=== PATIENT | male | born 1975 | race Caucasian/White ===

== ENCOUNTER 2017-02-28 16:16 | Emergency (ER) | payer SELFPAY ==
[2017-02-28 16:26] VITALS: RESP 18
[2017-02-28] MEDS ORDERED: DIPH,PERTUS(ACELL)TETVAC-LF 0.5 ML VIAL IM ONE (16:38)
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
[2017-02-28] MEDS ORDERED: HYDROcodone/APAP 5-325MG 1 EACH TAB PO STA (17:13)
--- NOTE | 2017-02-28 17:21 | XR ---
EXAMINATION TYPE: XR hand complete RT DATE OF EXAM: 02/28/2017 COMPARISON: 04/26/2013 HISTORY: Pain TECHNIQUE: 3 views FINDINGS: There is thickening of the proximal fifth metacarpal related to old healed fracture. I see no acute fracture nor dislocation. There is a 1 mm opacity in the soft tissues adjacent to the DIP maximo int of the index finger. The carpal bones are intact. The thumb appears intact. IMPRESSION: Small foreign body adjacent to the DIP joint of the index finger. No acute bony abnormali ty.
--- NOTE | 2017-02-28 17:23 | XR ---
EXAMINATION TYPE: XR mandible complete DATE OF EXAM: 02/28/2017 COMPARISON: NONE HISTORY: Pain TECHNIQUE: 5 views FINDINGS: Mandibular ring is intact. I see no fracture. Temporomandibular joint spaces are normal. IMPRESSION: Negative mandible exam.
[2017-02-28 18:09] VITALS: BP 132/83; PULSE 87; TEMP 97.8
== END 2017-02-28 18:09 | disposition home or self-care (01) ==
LOC: EC 16:16
DX: S01.81XA Laceration without foreign body of other part of head, initial encounter (principal); S60.011A Contusion of right thumb without damage to nail, initial encounter; R68.84 Jaw pain; M79.5 Residual foreign body in soft tissue; R93.7 Abnormal findings on diagnostic imaging of other parts of musculoskeletal system; F17.200 Nicotine dependence, unspecified, uncomplicated; Z23 Encounter for immunization; Y04.0XXA Assault by unarmed brawl or fight, initial encounter; Y93.89 Activity, other specified
CPT/HCPCS: 29125; 70110; 90471; 90715; 99284

== ENCOUNTER 2017-03-22 16:05 | Inpatient (IN) | payer OTHER ==
[2017-03-22] MEDS ORDERED: NALOXONE 0.4 MG/ML 1 ML VIAL IV STA (16:10)
[2017-03-22] MEDS ORDERED: SODIUM CHLORIDE 0.9% 1,000 ML IV STA (16:15)
[2017-03-22 16:32] LABS: Basophils % (A) 0 %; CHCM 33.5; Eosinophils # (A) 0.1 k/uL (0-0.7); Eosinophils % (A) 2 %; HDW 2.97; HGB 15.4 gm/dL (13.0-17.5); Luc # (Auto) 0.05; Luc % (Auto) 1; Lymphocytes # (A) 0.8 k/uL (1.0-4.8); Lymphocytes % (A) 17 %; MCHC 34.4 g/dL (31.0-37.0); MCV 93.1 fL (80.0-100.0); Mean Platelet Volume 6.9; Monocytes # (A) 0.2 k/uL (0-1.0); Monocytes % (A) 4 %; Neutrophils # (A) 3.6 k/uL (1.3-7.7); Neutrophils % (A) 76 %; RBC 4.83 m/uL (4.30-5.90); RDW 14.4 % (11.5-15.5); WBC 4.7 k/uL (3.8-10.6); WBC (Perox) 4.45
--- NOTE | 2017-03-22 16:44 | ED ---
General Adult HPI - General Chief complaint: Overdose Stated complaint: overdose Time Seen by Provider: 03/22/17 16:10 Source: EMS, RN notes reviewed, old records reviewed Mode of arrival: EMS Limitations: altered mental status - History of Present Illness Initial comments: This is a 41-year-old male the ER for evaluation. Patient coming in for suspected overdose. Patient found unresponsive, EMS called by bystander patient was breathing on his own but difficult to arouse. Patient remains in similar condition. Patient is a patient from EMS and patient's chart. Patient has history of drug abuse - Related Data Home Medications Medication Instructions Recorded Confirmed No Known Home Medications [No 03/22/17 03/22/17 Known Home Medications] Allergies Allergy/AdvReac Type Severity Reaction Status Date / Time No Known Allergies Allergy Verified 03/22/17 16:52 Review of Systems ROS Statement: Those systems with pertinent positive or pertinent negative responses have been documented in the HPI. ROS Other: All systems not noted in ROS Statement are negative. Past Medical History Past Medical History: No Reported History History of Any Multi-Drug Resistant Organisms: None Reported Past Surgical History: Appendectomy Past Psychological History: Depression Smoking Status: Current some day smoker Past Alcohol Use History: Occasional Past Drug Use History: Opiates General Exam Limitations: altered mental status General appearance: alert, obtunded, in distress Head exam: Present: atraumatic, normocephalic, normal inspection Eye exam: Present: normal appearance, PERRL, EOMI. Absent: scleral icterus, conjunctival injection, periorbital swelling ENT exam: Present: normal exam, mucous membranes moist Neck exam: Present: normal inspection. Absent: tenderness, meningismus, lymphadenopathy Respiratory exam: Present: normal lung sounds bilaterally. Absent: respiratory distress, wheezes, rales, rhonchi, stridor Cardiovascular Exam: Present: regular rate, normal rhythm, normal heart sounds. Absent: systolic murmur, diastolic murmur, rubs, gallop, clicks GI/Abdominal exam: Present: soft, normal bowel sounds. Absent: distended, tenderness, guarding, rebound, rigid Extremities exam: Present: normal inspection, full ROM, normal capillary refill. Absent: tenderness, pedal edema, joint swelling, calf tenderness Back exam: Present: normal inspection Neurological exam: Present: alert, oriented X3, CN II-XII intact Psychiatric exam: Present: normal affect, normal mood Skin exam: Present: warm, dry, intact, normal color. Absent: rash Course Vital Signs 03/22/17 16:07 Temperature 97.9 F Pulse Rate 118 H Respiratory 16 Rate Blood Pressure 136/90 O2 Sat by Pulse 99 Oximetry - Reevaluation(s) Reevaluation #1: 03/22/17 17:03 Patient does mildly protect airway, he does move with stimulation, maintaining oxygen both with and without supplemental O2 Medical Decision Making - Medical Decision Making Female ER for evaluation of altered mental status, unresponsiveness, benzodiazepine abuse and overdose. Patient will be admitted for continued monitoring of cardiovascular status - Lab Data Result diagrams: 03/22/17 16:15 03/22/17 16:15 Lab Results 03/22/17 03/22/17 03/22/17 Range/Units 16:15 16:15 16:15 WBC 4.7 (3.8-10.6) k/uL RBC 4.83 (4.30-5.90) m/uL Hgb 15.4 (13.0-17.5) gm/dL Hct 45.0 (39.0-53.0) % MCV 93.1 (80.0-100.0) fL MCH 32.0 (25.0-35.0) pg MCHC 34.4 (31.0-37.0) g/dL RDW 14.4 (11.5-15.5) % Plt Count 284 (150-450) k/uL Neutrophils % 76 % Lymphocytes % 17 % Monocytes % 4 % Eosinophils % 2 % Basophils % 0 % Neutrophils # 3.6 (1.3-7.7) k/uL Lymphocytes # 0.8 L (1.0-4.8) k/uL Monocytes # 0.2 (0-1.0) k/uL Eosinophils # 0.1 (0-0.7) k/uL Basophils # 0.0 (0-0.2) k/uL PT 11.6 (9.0-12.0) sec INR 1.2 H (<1.2) Sodium 142 (137-145) mmol/L Potassium 3.9 (3.5-5.1) mmol/L Chloride 105 (98-107) mmol/L Carbon Dioxide 22 (22-30) mmol/L Anion Gap 15 mmol/L BUN 9 (9-20) mg/dL Creatinine 1.20 (0.66-1.25) mg/dL Est GFR (MDRD) Af Amer >60 (>60 ml/min/1.73 sqM) Est GFR (MDRD) Non-Af >60 (>60 ml/min/1.73 sqM) Glucose 304 H (74-99) mg/dL Calcium 8.5 (8.4-10.2) mg/dL Total Bilirubin 0.8 (0.2-1.3) mg/dL AST 100 H (17-59) U/L ALT 53 (21-72) U/L Alkaline Phosphatase 86 (38-126) U/L Total Protein 6.4 (6.3-8.2) g/dL Albumin 3.9 (3.5-5.0) g/dL Lipase 188 (23-300) U/L Salicylates <1.0 mg/dL Urine Opiates Screen (NotDetected) Ur Oxycodone Screen (NotDetected) Urine Methadone Screen (NotDetected) Ur Propoxyphene Screen (NotDetected) Acetaminophen <10.0 ug/mL Ur Barbiturates Screen (NotDetected) U Tricyclic Antidepress (NotDetected) Ur Phencyclidine Scrn (NotDetected) Ur Amphetamines Screen (NotDetected) U Methamphetamines Scrn (NotDetected) U Benzodiazepines Scrn (NotDetected) Urine Cocaine Screen (NotDetected) U Marijuana (THC) Screen (NotDetected) Serum Alcohol <10 mg/dL 03/22/17 Range/Units 16:24 WBC (3.8-10.6) k/uL RBC (4.30-5.90) m/uL Hgb (13.0-17.5) gm/dL Hct (39.0-53.0) % MCV (80.0-100.0) fL MCH (25.0-35.0) pg MCHC (31.0-37.0) g/dL RDW (11.5-15.5) % Plt Count (150-450) k/uL Neutrophils % % Lymphocytes % % Monocytes % % Eosinophils % % Basophils % % Neutrophils # (1.3-7.7) k/uL Lymphocytes # (1.0-4.8) k/uL Monocytes # (0-1.0) k/uL Eosinophils # (0-0.7) k/uL Basophils # (0-0.2) k/uL PT (9.0-12.0) sec INR (<1.2) Sodium (137-145) mmol/L Potassium (3.5-5.1) mmol/L Chloride (98-107) mmol/L Carbon Dioxide (22-30) mmol/L Anion Gap mmol/L BUN (9-20) mg/dL Creatinine (0.66-1.25) mg/dL Est GFR (MDRD) Af Amer (>60 ml/min/1.73 sqM) Est GFR (MDRD) Non-Af (>60 ml/min/1.73 sqM) Glucose (74-99) mg/dL Calcium (8.4-10.2) mg/dL Total Bilirubin (0.2-1.3) mg/dL AST (17-59) U/L ALT (21-72) U/L Alkaline Phosphatase (38-126) U/L Total Protein (6.3-8.2) g/dL Albumin (3.5-5.0) g/dL Lipase (23-300) U/L Salicylates mg/dL Urine Opiates Screen Not Detected (NotDetected) Ur Oxycodone Screen Not Detected (NotDetected) Urine Methadone Screen Not Detected (NotDetected) Ur Propoxyphene Screen Not Detected (NotDetected) Acetaminophen ug/mL Ur Barbiturates Screen Not Detected (NotDetected) U Tricyclic Antidepress Not Detected (NotDetected) Ur Phencyclidine Scrn Not Detected (NotDetected) Ur Amphetamines Screen Detected H (NotDetected) U Methamphetamines Scrn Not Detected (NotDetected) U Benzodiazepines Scrn Detected H (NotDetected) Urine Cocaine Screen Not Detected (NotDetected) U Marijuana (THC) Screen Not Detected (NotDetected) Serum Alcohol mg/dL Critical Care Time Critical Care Time: Yes Total Critical Care Time: 31 Disposition Clinical Impression: Drug overdose, Benzodiazepine overdose Disposition: ADMITTED IP TO THIS [facility] Condition: Serious Referrals: None,Stated [Primary Care Provider] - 1-2 days
[2017-03-22 16:45] LABS: INR 1.2 (<1.2); Prothrombin Time 11.6 sec (9.0-12.0)
[2017-03-22 16:47] LABS: ALT 53 U/L (21-72); AST 100 U/L (17-59); Acetaminophen <10.0 ug/mL; Alcohol <10 mg/dL; Alkaline Phosphatase 86 U/L (38-126); Anion Gap 15 mmol/L; Blood Urea Nitrogen 9 mg/dL (9-20); Calcium 8.5 mg/dL (8.4-10.2); Carbon Dioxide 22 mmol/L (22-30); Chloride 105 mmol/L (98-107); Glucose 304 mg/dL (74-99); Non-African American GFR(MDRD) >60 (>60 ml/min/1.73 sqM); Potassium 3.9 mmol/L (3.5-5.1); Salicylate <1.0 mg/dL; Sodium 142 mmol/L (137-145); Total Bilirubin 0.8 mg/dL (0.2-1.3); Total Protein 6.4 g/dL (6.3-8.2)
[2017-03-22] MEDS ORDERED: SODIUM CHLORIDE 0.9% 1,000 ML IV ONE (17:05)
[2017-03-22 17:08] LABS: Creatine Kinase MB 1.1 ng/mL (0.0-2.4)
[2017-03-22 17:53] LABS: Glucose,Whole Blood 188 mg/dL (75-99)
[2017-03-22 19:20] LABS: Glucose,Whole Blood 115 mg/dL (75-99)
[2017-03-22] MEDS: PANTOPRAZOLE 40 MG/10 ML VIAL IVP SCH (19:21)
[2017-03-22] MEDS: HEPARIN SODIUM,PORCINE 5,000 UNIT/ML 1 ML VIAL SQ SCH (20:43)
[2017-03-22] MEDS: INSULIN LISPRO (humaLOG) 300 UNIT/3 ML VIAL SQ SCH (20:43)
[2017-03-22 20:45] LABS: Glucose,Whole Blood 106 mg/dL (75-99)
[2017-03-22 21:34] LABS: ALT 53 U/L (21-72); AST 55 U/L (17-59); Alkaline Phosphatase 91 U/L (38-126); Anion Gap 11 mmol/L; Blood Urea Nitrogen 8 mg/dL (9-20); Calcium 8.4 mg/dL (8.4-10.2); Carbon Dioxide 25 mmol/L (22-30); Chloride 108 mmol/L (98-107); Glucose 86 mg/dL (74-99); Non-African American GFR(MDRD) >60 (>60 ml/min/1.73 sqM); Potassium 3.8 mmol/L (3.5-5.1); Sodium 144 mmol/L (137-145); Total Bilirubin 0.8 mg/dL (0.2-1.3); Total Protein 6.1 g/dL (6.3-8.2)
[2017-03-23 04:51] LABS: Basophils % (A) 0 %; CH 32.3; CHCM 34.2; Eosinophils % (A) 0 %; HCT 40.4 % (39.0-53.0); HGB 13.2 gm/dL (13.0-17.5); Luc # (Auto) 0.07; Luc % (Auto) 1; Lymphocytes % (A) 12 %; MCH 31.1 pg (25.0-35.0); MCHC 32.7 g/dL (31.0-37.0); MCV 95.2 fL (80.0-100.0); Mean Platelet Volume 7.1; Monocytes # (A) 0.3 k/uL (0-1.0); Monocytes % (A) 4 %; Neutrophils # (A) 6.5 k/uL (1.3-7.7); Neutrophils % (A) 82 %; RBC 4.25 m/uL (4.30-5.90); RDW 15.2 % (11.5-15.5); WBC 7.9 k/uL (3.8-10.6); WBC (Perox) 8.46
[2017-03-23 05:25] LABS: ALT 40 U/L (21-72); AST 34 U/L (17-59); Alkaline Phosphatase 74 U/L (38-126); Anion Gap 7 mmol/L; Blood Urea Nitrogen 8 mg/dL (9-20); Calcium 8.2 mg/dL (8.4-10.2); Carbon Dioxide 25 mmol/L (22-30); Chloride 106 mmol/L (98-107); Glucose 75 mg/dL (74-99); Magnesium 1.5 mg/dL (1.6-2.3); Non-African American GFR(MDRD) >60 (>60 ml/min/1.73 sqM); Phosphorous 2.7 mg/dL (2.5-4.5); Potassium 3.7 mmol/L (3.5-5.1); Sodium 138 mmol/L (137-145); Total Protein 5.2 g/dL (6.3-8.2)
[2017-03-23] MEDS ORDERED: Magnesium Replacement Protocol 1 EACH MISC MISCELLANE PRN (05:30)
[2017-03-23] MEDS ORDERED: Potassium Replacement Protocol 1 EACH MISC MISCELLANE PRN (05:30)
[2017-03-23] MEDS: MAGNESIUM SULFATE-D5W PMX 1 GM in DEXTROSE/WATER 1 100ML.BAG IVPB SCH ×2 (06:48→10:13)
[2017-03-23 07:37] LABS: Glucose,Whole Blood 125 mg/dL (75-99)
[2017-03-23] MEDS ORDERED: ENOXAPARIN 40 MG/0.4 ML SYRINGE SQ SCH (09:00)
--- NOTE | 2017-03-23 10:01 | XR ---
EXAMINATION TYPE: XR chest 1V portable DATE OF EXAM: 03/23/2017 COMPARISON: NONE HISTORY: Possible aspiration pneumonia. Cough. TECHNIQUE: Single frontal view of the chest is obtained. FINDINGS: New focal consolidations are seen within the left midlung and right infrahilar region. Rem ainder the lungs are clear. No pneumothorax or pleural effusion. Osseous structures appear intact. IMPRESSION: Left midlung and right infrahilar airspace disease, new from the prior, suspicious for m ultifocal pneumonia which may be on the basis of aspiration as clinically suspected.
[2017-03-23] MEDS: PANTOPRAZOLE 40 MG/10 ML VIAL IVP SCH (10:13)
[2017-03-23] MEDS: HEPARIN SODIUM,PORCINE 5,000 UNIT/ML 1 ML VIAL SQ SCH ×2 (10:14→22:50)
[2017-03-23] MEDS: POTASSIUM CHLORIDE ER 20 MEQ TAB.ER PO SCH ×2 (10:14→11:43)
[2017-03-23] MEDS: INSULIN LISPRO (humaLOG) 300 UNIT/3 ML VIAL SQ SCH ×4 (10:15→22:50)
[2017-03-23] MEDS: AMOXIC-POT CLAV 875-125MG 1 EACH TAB PO SCH ×2 (11:44→22:50)
[2017-03-23 11:57] LABS: Hemoglobin A1C 5.2 % (4.2-6.1)
[2017-03-23 12:16] LABS: Glucose,Whole Blood 101 mg/dL (75-99)
--- NOTE | 2017-03-23 12:23 | P.CNPUL ---
History of Present Illness Consult date: 03/23/17 Requesting physician: Peewee Thurston Reason for consult: other (Suspected drug overdose) Chief complaint: Altered mental status History of present illness: This is a 41-year-old white male with history of substance abuse, brought into the ER unresponsive, patient was found by a bystander confused, unable to arouse , and was found to be breathing on his own. Upon arrival to the ER, patient remained in a relatively similar condition, a drug screen in the ER came back positive for amphetamines and benzodiazepines. Patient was admitted to the ICU last night at 6 PM, however during my evaluation the patient was noted to be relatively unremarkable, alert, oriented, and in no form of respiratory distress. Chest x-ray questioned infiltrates in the bases especially in the left lower lobe, hence I recommended adding Augmentin for presumptive aspiration pneumonia. Patient is complaining of a productive cough with yellow phlegm, no fever, no chills, no hemoptysis, no chest pain. No nausea no vomiting no abdominal pain no melena no hematemesis or dysuria frequency or urgency. Review of Systems 14 point review of systems were obtained, please refer to pertinent positives and negatives as per HPI. Past Medical History Past Medical History: No Reported History History of Any Multi-Drug Resistant Organisms: None Reported Past Surgical History: Appendectomy Past Psychological History: Depression Smoking Status: Current some day smoker Past Alcohol Use History: Occasional Past Drug Use History: Opiates Medications and Allergies Home Medications Medication Instructions Recorded Confirmed Type No Known Home Medications [No 03/22/17 03/22/17 History Known Home Medications] Allergies Allergy/AdvReac Type Severity Reaction Status Date / Time No Known Allergies Allergy Verified 03/22/17 16:52 Physical Exam Vitals: Vital Signs Temp Pulse Pulse Resp BP Pulse Ox 03/23/17 10:00 95 15 103/53 96 03/23/17 09:00 91 15 108/62 96 03/23/17 08:00 98.1 F 93 102 H 14 103/63 97 03/23/17 07:00 90 12 102/60 97 03/23/17 06:30 90 12 102/60 97 03/23/17 06:00 89 16 96/54 96 03/23/17 05:30 95 16 96/54 98 03/23/17 05:00 89 20 101/61 95 03/23/17 04:30 87 15 101/61 96 03/23/17 04:00 98.2 F 84 102 H 16 102/59 96 03/23/17 03:30 90 14 102/59 95 03/23/17 03:00 92 19 99/58 95 03/23/17 02:30 94 16 85/56 94 L 03/23/17 02:00 93 16 92/55 95 03/23/17 01:30 96 15 87/56 95 03/23/17 01:00 94 18 92/51 96 03/23/17 00:30 89 15 84/52 96 03/23/17 00:00 97.8 F 91 102 H 16 104/75 96 03/22/17 23:34 85 15 104/75 92 L 03/22/17 23:30 98.2 F 94 18 104/75 92 L 03/22/17 23:00 84 18 100 03/22/17 22:30 89 14 111/75 100 03/22/17 22:00 88 15 111/75 100 03/22/17 21:30 92 18 111/75 99 03/22/17 21:00 101 H 24 111/75 98 03/22/17 20:30 91 13 86/65 100 03/22/17 20:00 98.7 F 88 102 H 13 107/62 100 03/22/17 19:30 90 13 108/65 100 03/22/17 19:00 90 11 L 108/66 100 03/22/17 18:30 95 13 98/71 100 03/22/17 18:15 96 13 105/73 97 03/22/17 18:00 97 14 107/74 99 03/22/17 17:45 97.9 F 102 H 102 H 13 111/70 100 03/22/17 17:15 97.9 F 108 H 20 115/61 98 03/22/17 17:00 114 H 19 128/61 94 L 03/22/17 16:30 114 H 20 134/66 99 03/22/17 16:07 97.9 F 118 H 16 136/90 99 Intake and Output 03/22/17 03/23/17 03/23/17 22:59 06:59 14:59 Intake Total 1400 800 400 Output Total 1050 660 460 Balance 350 140 -60 Intake: IV 1400 800 400 Sodium Chloride 0.9% 1, 400 800 400 000 ml @ 100 mls/hr IV . Q10H ONE Rx#:[id number] Sodium Chloride 0.9% 1, 1000 000 ml @ 999 mls/hr IV . Q1H1M STA Rx#:[id number] Output: Urine 1050 660 460 Other: Voiding Method Indwelling Catheter Indwelling Catheter Indwelling Catheter Weight 66.4 kg 62.9 kg Physical Exam: Revealed a 41-year-old white male in no distress. HEENT:[Neck is supple.] [No neck masses.] [No thyromegaly.] [No JVD.] Chest: [Clear throughout, normal fine crackles at the bases, no rhonchi, no wheezes..] Cardiac Exam: [Normal S1 and S2, no S3 gallop, no murmur.] Abdomen: [Soft, nontender, no megaly, no rebound, no guarding, normal bowel sounds.] Extremities: [No clubbing, no edema, no cyanosis.] Neurological Exam: [No focal neurologic deficit.] Results - Laboratory Findings CBC and BMP: 03/23/17 04:01 03/23/17 04:25 PT/INR, D-dimer PT 11.6 sec (9.0-12.0) 03/22/17 16:15 INR 1.2 (<1.2) H 03/22/17 16:15 Abnormal lab findings: Abnormal Labs 03/22/17 03/22/17 03/22/17 16:15 16:15 16:15 RBC Lymphocytes # 0.8 L INR 1.2 H Chloride BUN Glucose 304 H POC Glucose (mg/dL) Calcium Magnesium AST 100 H Total Protein Albumin Ur Amphetamines Screen U Benzodiazepines Scrn 03/22/17 03/22/17 03/22/17 16:24 17:41 19:18 RBC Lymphocytes # INR Chloride BUN Glucose POC Glucose (mg/dL) 188 H 115 H Calcium Magnesium AST Total Protein Albumin Ur Amphetamines Screen Detected H U Benzodiazepines Scrn Detected H 03/22/17 03/22/17 03/23/17 20:42 21:01 04:01 RBC 4.25 L Lymphocytes # INR Chloride 108 H BUN 8 L Glucose POC Glucose (mg/dL) 106 H Calcium Magnesium AST Total Protein 6.1 L Albumin Ur Amphetamines Screen U Benzodiazepines Scrn 03/23/17 03/23/17 03/23/17 04:25 07:32 12:15 RBC Lymphocytes # INR Chloride BUN 8 L Glucose POC Glucose (mg/dL) 125 H 101 H Calcium 8.2 L Magnesium 1.5 L AST Total Protein 5.2 L Albumin 2.9 L Ur Amphetamines Screen U Benzodiazepines Scrn - Diagnostic Findings Chest x-ray: image reviewed (Suspicious for aspiration pneumonia) Assessment and Plan Plan: Impression: 1 acute mental status change most likely secondary to multi-substance abuse/ amphetamines and benzodiazepines. 2 strongly suspect aspiration pneumonia. Recommendation: Patient will be placed on Augmentin empirically, all his labs were reviewed, we'll recommend DuoNeb elmerradewayne 4 times a day and when necessary , with transfer the patient with a bedside sitter to be available at bedside and will follow on when necessary basis. Time with Patient: Greater than 30
[2017-03-23] MEDS ORDERED: IPRATROPIUM-ALBUTEROL 3 ML NEB INHALATION PRN (12:24)
--- NOTE | 2017-03-23 13:27 | HP ---
DATE OF SERVICE: 03/22/2017 CHIEF COMPLAINTS: Overdose. HISTORY OF PRESENT ILLNESS: This 41-year-old gentleman with past medical history of multiple medical problems including appendectomy, otherwise no other major issues, with history of depression being followed by no primary physician in the outpatient setting apparently had been admitted to [facility] with complaints of overdose. The patient overdosed on benzodiazepines and methamphetamines. The drug screen is positive methamphetamines and benzodiazepines. The patient is admitted for further evaluation and treatments. Sugars were increased initially. Currently patient is drowsy and unable to give coherent history. Most of history is taken from my discussion with ER physician , review of the chart as well as staff also. PAST MEDICAL HISTORY: History of appendectomy, history of depression. Medications prior to admission: None. ALLERGIES: None. FAMILY HISTORY: No history of heart disease or strokes in the family. SOCIAL HISTORY: History of smoking, otherwise per chart. Review of systems could not be taken at length because of patients change in mental status. PHYSICAL EXAMINATION: The patient is stuporous. Pulse 95, blood pressure 98/71, respirations 13, temperature normal, pulse ox 100% on 2-L. HEENT: Conjunctivae normal. Oral mucosa moist. NECK: No jugular venous distention. No carotid bruit. No lymph node enlargement. CARDIOVASCULAR: S1, S2. No S3 or S4. RESPIRATORY: Breath sounds diminished at the bases. A few rhonchi, no crackles. ABDOMEN: Soft, nontender. No mass palpable. LEGS: No edema, no swelling. NERVOUS SYSTEM: Higher function as mentioned. Moves all four limbs. No focal motor sensory deficits. LYMPHATICS: No lymphadenopathy in the neck, axillae or groin. SKIN: No rash, ulcer or bleeding. LABS: CBC within normal limits. INR is 1.2. Glucose 304 and 188. ASSESSMENT: 1. Status post overdose. 2. Change in mental status, metabolic encephalopathy secondary to overdose. 3. Increased random blood sugar, rule out diabetes mellitus type 2. 4. History of appendectomy. 5. History of depression. 6. History of nicotine dependence. RECOMMENDATIONS AND DISCUSSION: In this 41-year-old gentleman who presented with multiple complex medical issues, we well monitor the patient closely. Continue the current medications. Continue symptomatic treatment. Otherwise at this time I would recommend Psychiatry and Social Work evaluations also. DVT prophylaxis. GI prophylaxis. Repeat the labs tomorrow. Prognosis guarded. Further recommendations to follow. MTDD
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
[2017-03-23 17:26] LABS: Glucose,Whole Blood 117 mg/dL (75-99)
[2017-03-23 20:53] LABS: Glucose,Whole Blood 116 mg/dL (75-99)
[2017-03-24 07:15] LABS: Glucose,Whole Blood 99 mg/dL (75-99)
[2017-03-24] MEDS ORDERED: PANTOPRAZOLE 40 MG TABLET PO SCH (07:30)
--- NOTE | 2017-03-24 07:35 | PN ---
DATE OF SERVICE: 03/23/2017 This 41-year-old gentleman who was admitted with benzodiazepine and methamphetamine overdose is being closely monitored. No chest pain, no palpitation, no fever. The patient is much more alert today. Pulmonary is following the patient closely. Chest x-ray showed possibly a left lobe pneumonia, possibly aspiration in nature. Augmentin has been recommended by Dr. Toro. Psychiatry is seeing the patient also and recommended close follow up. PAST MEDICAL HISTORY: Reviewed. REVIEW OF SYSTEMS: CARDIOVASCULAR: No angina. RESPIRATORY: As mentioned earlier. GI: As mentioned earlier. : No dysuria. NERVOUS SYSTEM: As mentioned earlier. CURRENT MEDICATIONS: Reviewed and include: 1. DuoNeb q.i.d. and p.r.n. 2. Augmentin. 3. Heparin. 4. KCL, 5. Protonix. PHYSICAL EXAMINATION: The patient is alert and oriented x3. Pulse is 80, blood pressure 118/70, respirations 18, temperature 98.4, pulse ox 92% on room air. HEENT: Conjunctivae normal. NECK: No JVD. CARDIOVASCULAR: S1/S2. RESPIRATORY: Diminished breath sounds, especially at the bases. A few scattered rhonchi, no crackles. ABDOMEN: Soft, nontender. LEGS: No edema. NERVOUS SYSTEM: Diffusely weak. LAB INVESTIGATIONS: CBC within normal. Accu-Cheks are noted. Albumin is 2.9 ASSESSMENT: 1. Status post overdose. 2. Change in mental status, metabolic encephalopathy secondary to overdose. 3. Right lower lobe pneumonia, possibly aspiration pneumonia. 4. Increased random blood sugar. 5. History of appendectomy. 6. History of depression. 7. History of nicotine dependence. RECOMMENDATIONS AND DISCUSSION: Recommend to continue current medication, continue to monitor, continue symptomatic treatment. Continue with IV antibiotics. Otherwise, hemoglobin A1c is only 5.2, will continue to monitor. Prognosis is guarded because of multiple complex medical issues. Further recommendations to follow. See orders for details. Psychiatric consultation and rn social work, counseling follow in the outpatient setting. MTDD
[2017-03-24 07:37] VITALS: BP 125/74; RESP 16; TEMP 99.2
[2017-03-24] MEDS: INSULIN LISPRO (humaLOG) 300 UNIT/3 ML VIAL SQ SCH (08:37)
[2017-03-24] MEDS: HEPARIN SODIUM,PORCINE 5,000 UNIT/ML 1 ML VIAL SQ SCH (09:14)
[2017-03-24] MEDS: AMOXIC-POT CLAV 875-125MG 1 EACH TAB PO SCH (09:14)
[2017-03-24 09:43] LABS: CH 32.1; CHCM 34.4; HCT 41.5 % (39.0-53.0); HDW 2.82; HGB 13.7 gm/dL (13.0-17.5); MCH 30.9 pg (25.0-35.0); MCV 93.8 fL (80.0-100.0); Mean Platelet Volume 7.1; RBC 4.42 m/uL (4.30-5.90); RDW 14.6 % (11.5-15.5)
[2017-03-24 09:46] LABS: Anion Gap 7 mmol/L; Blood Urea Nitrogen 4 mg/dL (9-20); Calcium 8.1 mg/dL (8.4-10.2); Carbon Dioxide 22 mmol/L (22-30); Chloride 110 mmol/L (98-107); Glucose 104 mg/dL (74-99); Magnesium 1.8 mg/dL (1.6-2.3); Non-African American GFR(MDRD) >60 (>60 ml/min/1.73 sqM); Potassium 3.8 mmol/L (3.5-5.1); Sodium 139 mmol/L (137-145)
[2017-03-24 10:01] VITALS: PULSE 97
== END 2017-03-24 12:52 | disposition left against medical advice (07) | DRG 917 ==
LOC: EC 16:05 → 6ICU 17:05 → 4MS4W 03-23 12:23
PROVIDERS: ADMIT Hospitalist; ATTEND Hospitalist
DX: T42.4X1A Poisoning by benzodiazepines, accidental (unintentional), initial encounter (principal); G93.41 Metabolic encephalopathy; J69.0 Pneumonitis due to inhalation of food and vomit; T43.621A Poisoning by amphetamines, accidental (unintentional), initial encounter; F17.200 Nicotine dependence, unspecified, uncomplicated
CPT/HCPCS: 36415; 71010; 80048; 80053; 80306; 80320; 82550; 82553; 83036; 83520; 83690; 83735; 84100; 85025; 85027; 85610; 93005; 96361; 96374; 99291

== ENCOUNTER 2021-11-07 09:17 | Emergency (ER) | payer OTHER ==
[2021-11-07 09:21] VITALS: RESP 18; TEMP 97
[2021-11-07] MEDS ORDERED: HYDROmorphone 0.5 MG/0.5 ML SYRINGE IVP STA (09:29)
[2021-11-07] MEDS ORDERED: ONDANSETRON 4 MG/2 ML VIAL IVP STA (09:29)
--- NOTE | 2021-11-07 10:24 | XR ---
EXAMINATION TYPE: XR ankle complete bilateral DATE OF EXAM: 11/07/2021 COMPARISON: None available INDICATION: Pain after fall TECHNIQUE: Standard 3 views of each ankle. FINDINGS: Right ankle: Soft tissue swelling inferior to the right medial malleolus. Few bone fragments are seen at that loca tion, well-corticated and probably related to sequela of previous trauma. No definite acute fracture line identified otherwise. Preserved ankle mortise with a smooth talar dome. No sizable ankle joint e ffusion. Left ankle: Commuted fracture involving the left calcaneus most evident at its mid and posterior aspects. No othe r definite fracture line identified. Preserved ankle mortise with a smooth talar dome. No sizable ank le joint effusion. IMPRESSION: Left calcaneus fracture as described above.
[2021-11-07] MEDS ORDERED: KETOROLAC 15 MG/ML 1 ML VIAL IVP STA (10:27)
[2021-11-07] MEDS ORDERED: HYDROmorphone 1 MG/ML 1 ML SYRINGE IVP STA (10:27)
--- NOTE | 2021-11-07 10:29 | XR ---
EXAMINATION TYPE: XR lumbar spine 2 or 3V DATE OF EXAM: 11/07/2021 COMPARISON: X-ray dated 03/10/2014 INDICATION: Pain after fall TECHNIQUE: Standard 3 views of the lumbar spine. FINDINGS: Minimal retrolisthesis of L5 over S1 and L3 over L4, appreciated previously. No definite vertebral tricia dy collapse or acute displaced fracture. No significant bony degenerative changes of the lumbar spine. Questionable osteopenia. Grossly unrema rkable sacroiliac joints. Fecal loading of the colon. IMPRESSION: No definite lumbar vertebral fracture identified.
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
--- NOTE | 2021-11-07 10:56 | CT ---
EXAMINATION TYPE: CT ankle LT wo con DATE OF EXAM: 11/07/2021 INDICATION: Fall off ladder, 12 ft. Pain, Calcaneus fracture CT DLP: 72.2 mGy.cm Automated Exposure Control for Dose Reduction was Utilized. TECHNIQUE AND CONTRAST: CT scan of the left ankle without IV contrast administration. 3-D reconstruction images were generate d on an independent workstation and reviewed. COMPARISON: X-ray performed earlier same day FINDINGS: Comminuted extensive mildly displaced fracture of the calcaneus extending from its anterior to its po sterior margin of the multiple variable size bone fragments and a gap up to 8 mm at the fra cture site. The fracture line is seen extending anteriorly to the calcaneocuboid articulation as well as the anterior and posterior subtalar joints. No other definite tarsal bone fracture identified. Apparent mild anterior subluxation of the talus in relation to the tibia without definite fracture. No sizable ankle joint effusion. Preserved ankle mo rtise with a smooth talar dome. IMPRESSION: Comminuted calcaneal fracture as described above, for orthopedic consultation.
[2021-11-07 11:36] VITALS: BP 140/86; PULSE 94
== END 2021-11-07 13:15 | disposition home or self-care (01) ==
LOC: EC 09:17
DX: S92.002A Unspecified fracture of left calcaneus, initial encounter for closed fracture (principal); F32.A Depression, unspecified; Z90.49 Acquired absence of other specified parts of digestive tract; W11.XXXA Fall on and from ladder, initial encounter
CPT/HCPCS: 99284; 96374; 96375 ×2; 96376; 29515; 73610; 72100; 73700; J2405; J1170 ×2; J1885

== ENCOUNTER 2022-01-17 10:39 | Emergency (ER) | payer OTHER ==
[2022-01-17 10:50] VITALS: PULSE 115; RESP 18; TEMP 97
--- NOTE | 2022-01-17 10:57 | ED ---
Overdose HPI - General Chief Complaint: Overdose Stated Complaint: Overdose Time Seen by Provider: 01/17/22 10:45 Source: patient, EMS, RN notes reviewed, old records reviewed Mode of arrival: EMS Limitations: no limitations - History of Present Illness Initial Comments: 46-year-old male, alert and oriented presents to the emergency room via EMS after being found unresponsive. Patient states he walked out to his truck to get a bottle for his granddaughter and passed out. His daughter called 911. EMS gave him Narcan and he awoke. Patient states that he only took 6 Xanax 2 mg tablets to help him sleep about an hour ago as he hasn't been sleeping well. He denies any narcotic use at all. He denies alcohol use today. He denies any pain at this time. No chest pain or difficulty breathing. No nausea, vomiting, diarrhea or fevers. He denies any suicidal or homicidal ideations. MD Complaint: accidental overdose Intent: want to go to sleep How Overdose Was Discovered: called family/friend Context: Accidental Overdose: other (trying to get some sleep) Treatments Prior to Arrival: narcan - Related Data Home Medications Medication Instructions Recorded Confirmed No Known Home Medications 01/17/22 01/17/22 Allergies Allergy/AdvReac Type Severity Reaction Status Date / Time No Known Allergies Allergy Verified 01/17/22 12:02 Review of Systems ROS Statement: Those systems with pertinent positive or pertinent negative responses have been documented in the HPI. ROS Other: All systems not noted in ROS Statement are negative. Past Medical History Past Medical History: No Reported History History of Any Multi-Drug Resistant Organisms: None Reported Past Surgical History: Appendectomy Past Psychological History: No Psychological Hx Reported Smoking Status: Current every day smoker, Vaper Past Alcohol Use History: Occasional Past Drug Use History: Opiates General Exam Limitations: no limitations General appearance: alert, in no apparent distress Head exam: Present: atraumatic, normocephalic, normal inspection Eye exam: Present: normal appearance, EOMI. Absent: scleral icterus, conjunctival injection, nystagmus, periorbital swelling, periorbital tenderness Pupils: Present: miosis ENT exam: Present: normal exam, normal oropharynx, mucous membranes moist Neck exam: Present: normal inspection, full ROM. Absent: tenderness, meningismus Respiratory exam: Present: normal lung sounds bilaterally. Absent: respiratory distress, accessory muscle use Cardiovascular Exam: Present: tachycardia GI/Abdominal exam: Present: soft. Absent: distended, tenderness, rigid Back exam: Present: full ROM, other (Abrasion noted to the mid thoracic spine). Absent: tenderness, CVA tenderness (R), CVA tenderness (L) Neurological exam: Present: alert, oriented X3, CN II-XII intact Psychiatric exam: Present: normal affect, normal mood Skin exam: Present: warm, dry, normal color. Absent: cyanosis, diaphoretic, petechiae, pallor Course Vital Signs 01/17/22 01/17/22 10:44 12:37 Temperature 97.0 F L Pulse Rate 115 H Respiratory 18 18 Rate Blood Pressure 144/101 152/99 O2 Sat by Pulse 94 L 98 Oximetry Medical Decision Making - Medical Decision Making Patient was observed in the emergency room for 2 hours with no complaints, no vomiting, no complaints of chest pain or dyspnea. He become anxious as the police arrived to arrest him, stating he did take morphine today after adamantly denying any narcotic use initially. Urine drug screen was negative. EKG shows sinus tachycardia with no ST elevation. He was discharged in to police custody, case discussed with Dr. Ochoa - Lab Data Lab Results 01/17/22 Range/Units 11:51 Urine Opiates Screen Not Detected (NotDetected) Ur Oxycodone Screen Not Detected (NotDetected) Urine Methadone Screen Not Detected (NotDetected) Ur Propoxyphene Screen Not Detected (NotDetected) Ur Barbiturates Screen Not Detected (NotDetected) U Tricyclic Antidepress Not Detected (NotDetected) Ur Phencyclidine Scrn Not Detected (NotDetected) Ur Amphetamines Screen Not Detected (NotDetected) U Methamphetamines Scrn Not Detected (NotDetected) U Benzodiazepines Scrn Not Detected (NotDetected) Urine Cocaine Screen Not Detected (NotDetected) U Marijuana (THC) Screen Not Detected (NotDetected) - EKG Data Rate: tachycardia (Sinus tachycardia 129, when necessary 0.137, QRS 0.94, QTC 0.389) Disposition Clinical Impression: Accidental drug overdose Disposition: HOME SELF-CARE Condition: Good Instructions (If sedation given, give patient instructions): Adult Overdose (ED) Additional Instructions: Only take your Xanax as prescribed. Follow-up with you primary care doctor next week. Return to the emergency room with a new or concerning symptoms. Is patient prescribed a controlled substance at d/c from ED?: No Referrals: None,Stated [Primary Care Provider] - 1-2 days Time of Disposition: 12:34
[2022-01-17 12:29] LABS: Amphetamine Screen,Urine Not Detected (NotDetected); Barbiturate Screen,Urine Not Detected (NotDetected); Benzodiazepines Screen,Urine Not Detected (NotDetected); Cocaine Screen,Urine Not Detected (NotDetected); Methadone Screen, Urine Not Detected (NotDetected); Opiate Screen,Urine Not Detected (NotDetected); Oxycodone Screen, Urine Not Detected (NotDetected); Phencyclidine Screen,Urine Not Detected (NotDetected); Tricyclic Antidepressant,Urine Not Detected (NotDetected); Urn Cannabinoid Scrn Not Detected (NotDetected)
[2022-01-17 12:40] VITALS: BP 152/99
== END 2022-01-17 12:55 | disposition home or self-care (01) ==
LOC: EC 10:39
DX: T42.4X1A Poisoning by benzodiazepines, accidental (unintentional), initial encounter (principal); F17.290 Nicotine dependence, other tobacco product, uncomplicated
CPT/HCPCS: 80306; 99284

== ENCOUNTER 2023-11-08 11:18 | Emergency (ER) | payer OTHER ==
[2023-11-08] MEDS: KETOROLAC 15 MG/ML 1 ML VIAL IM STA (11:34)
[2023-11-08] MEDS: ORPHENADRINE 30 MG/ML 2 ML VIAL IM STA (11:34)
--- NOTE | 2023-11-08 11:34 | ED ---
Back Pain HPI - General Chief Complaint: Back Pain/Injury Stated Complaint: Back Pain Time Seen by Provider: 11/08/23 11:19 Source: patient, RN notes reviewed, old records reviewed Limitations: no limitations - History of Present Illness Initial Comments: 48-year-old male presents emergency department with chief complaint of low back pain. Patient states he was moving some furniture yesterday started having back pain last night. He states that the pain is so intense makes it difficult to get up from a seated position or ambulate without discomfort. Patient denies any bowel, bladder incontinence retention or any saddle anesthesias. Patient has no lower extremity pain or weakness or paresthesias. Patient states he has had a bad back in the past. He denies any medications currently. He has no known drug allergies. Denies any abdominal complaints. No rashes. - Related Data Previous Rx's Medication Instructions Recorded Cyclobenzaprine [Flexeril] 10 mg PO TID PRN #15 tab 11/08/23 Ibuprofen [Motrin] 600 mg PO Q8HR PRN #20 tab 11/08/23 Lidocaine 5% Patch [Lidoderm 5% 1 patch TOPICAL DAILY #7 patch 11/08/23 Patch] predniSONE 50 mg PO DAILY #4 tab 11/08/23 Allergies Allergy/AdvReac Type Severity Reaction Status Date / Time No Known Allergies Allergy Verified 11/08/23 11:22 Review of Systems ROS Statement: Those systems with pertinent positive or pertinent negative responses have been documented in the HPI. ROS Other: All systems not noted in ROS Statement are negative. Past Medical History Past Medical History: No Reported History History of Any Multi-Drug Resistant Organisms: None Reported Past Surgical History: Appendectomy Past Psychological History: No Psychological Hx Reported Smoking Status: Current every day smoker, Vaper Past Alcohol Use History: Occasional Past Drug Use History: None Reported General Exam Limitations: no limitations General appearance: alert, in no apparent distress Head exam: Present: atraumatic, normocephalic, normal inspection Eye exam: Present: normal appearance, PERRL, EOMI. Absent: scleral icterus, conjunctival injection, periorbital swelling Neck exam: Present: full ROM. Absent: tenderness Respiratory exam: Present: normal lung sounds bilaterally. Absent: respiratory distress, wheezes, rales, rhonchi, stridor Cardiovascular Exam: Present: normal rhythm, tachycardia, normal heart sounds. Absent: systolic murmur, diastolic murmur, rubs, gallop, clicks GI/Abdominal exam: Present: soft, normal bowel sounds. Absent: distended, tenderness, guarding, rebound, rigid Extremities exam: Present: normal inspection, full ROM, normal capillary refill, other (Lower extremity color, warmth equal bilaterally). Absent: tenderness, pedal edema, joint swelling, calf tenderness Back exam: Present: tenderness, muscle spasm, paraspinal tenderness. Absent: full ROM, vertebral tenderness Neurological exam: Present: alert, oriented X3, reflexes normal. Absent: motor sensory deficit Skin exam: Present: warm, dry, intact, normal color. Absent: rash Course Vital Signs 11/08/23 11:20 Temperature 97.8 F Pulse Rate 125 H Respiratory 18 Rate Blood Pressure 126/85 O2 Sat by Pulse 99 Oximetry Medical Decision Making - Medical Decision Making Was pt. sent in by a medical professional or institution (, PA, AGENCY LEGAL COUNSEL, urgent care, hospital, or group home...) When possible be specific @ -No Did you speak to anyone other than the patient for history (EMS, parent, family, police, friend...)? What history was obtained from this source @ -No Did you review nursing and triage notes (agree or disagree)? Why? @ -I reviewed and agree with nursing and triage notes Were old charts reviewed (outside hosp., previous admission, EMS record, old EKG, old radiological studies, urgent care reports/EKG's, group home records)? Report findings @ -Reviewed prior labs, imaging Differential Diagnosis (chest pain, altered mental status, abdominal pain women, abdominal pain men, vaginal bleeding, weakness, fever, dyspnea, syncope, headach e, dizziness, GI bleed, back pain, seizure, CVA, palpatations, mental health, musculoskeletal)? @ -Differential Back Pain: Strain, zoster, cauda equina syndrome, epidural abscess, vertebral osteomyel itis, discitis, fracture, subluxation, disc herniation, DJD, spinal stenosis, dissection, AAA, pancreatitis, peptic ulcer disease, pyelonephritis, kidney stone, this is not meant to be an all-inclusive list. EKG interpreted by me (3pts min.). @ -[None X-rays interpreted by me (1pt min.). @ -X-ray lumbar spine showing degenerative changes. CT interpreted by me (1pt min.). @ -None done U/S interpreted by me (1pt. min.). @ -None done What testing was considered but not performed or refused? (CT, X-rays, U/S, labs)? Why? @ -None What meds were considered but not given or refused? Why? @ -None Did you discuss the management of the patient with other professionals (professionals i.e. Dr., PA, AGENCY LEGAL COUNSEL, lab, RT, psych nurse, social media analyst, service desk director, teacher, assurance officer, patient case coordinator)? Give summary @ -No Was smoking cessation discussed for >3mins.? @ -No Was critical care preformed (if so, how long)? @ -No Were there social determinants of health that impacted care today? How? (Homelessness, low income, unemployed, alcoholism, drug addiction, transportation, low edu. Level, literacy, decrease access to med. care, [facility], rehab)? @ -No Was there de-escalation of care discussed even if they declined (Discuss DNR or withdrawal of care, Hospice)? DNR status @ -No What co-morbidities impacted this encounter? (DM, HTN, Smoking, COPD, CAD, Cancer, CVA, ARF, Chemo, Hep., AIDS, mental health diagnosis, sleep apnea, morbid obesity)? @ -None Was patient admitted / discharged? Hospital course, mention meds given and route, prescriptions, significant lab abnormalities, going to OR and other pertinent info. @ -[Discharge patient's x-ray shows mild degenerative changes, patient is provided analgesics in the emergency department and upon discharge. Patient was started on course of steroids. Return parameters were discussed. Undiagnosed new problem with uncertain prognosis? @ -No Drug Therapy requiring intensive monitoring for toxicity (Heparin, Nitro, Insulin, Cardizem)? @ -No Were any procedures done? @ -No Diagnosis/symptom? @ -Lumbar back pain Acute, or Chronic, or Acute on Chronic? @ -Acute Uncomplicated (without systemic symptoms) or Complicated (systemic symptoms)? @ -Uncomplicated Side effects of treatment? @ -No Exacerbation, Progression, or Severe Exacerbation? @ -No Poses a threat to life or bodily function? How? (Chest pain, [place], [place], pneumonia, PE, COPD, DKA, ARF, appy, cholecystitis, CVA, Diverticulitis, Homicidal, Suicidal, threat to staff... and all critical care pts) @ -No Disposition Clinical Impression: Strain of lumbar region, Lumbar back pain Disposition: HOME SELF-CARE Instructions (If sedation given, give patient instructions): Acute Low Back Pain (ED) Additional Instructions: Please return to the Emergency Department if symptoms worsen or any other concerns. Prescriptions: Cyclobenzaprine [Flexeril] 10 mg PO TID PRN #15 tab PRN Reason: Muscle Spasm Lidocaine 5% Patch [Lidoderm 5% Patch] 1 patch TOPICAL DAILY #7 patch Ibuprofen [Motrin] 600 mg PO Q8HR PRN #20 tab PRN Reason: Pain predniSONE 50 mg PO DAILY #4 tab Is patient prescribed a controlled substance at d/c from ED?: No Referrals: None,Stated [Primary Care Provider] - 1-2 days Time of Disposition: 12:13
[2023-11-08] MEDS: LIDOCAINE 4% PATCH TOPICAL ONE (11:37)
[2023-11-08 11:52] VITALS: RESP 18
--- NOTE | 2023-11-08 12:01 | XR ---
EXAMINATION TYPE: XR lumbar spine 2 or 3V DATE OF EXAM: 11/08/2023 COMPARISON: 11/07/2021 HISTORY: Pain TECHNIQUE: 3 view lumbar spine FINDINGS: There are 5 lumbar-type vertebral bodies. Pedicles are intact. Some minimal disc space narr owing L5-S1 is present posteriorly. This is stable from comparison. Remaining disc heights are preser red. Vertebral body heights are preserved. No significant interval changes are evident. IMPRESSION: 1. Minimal posterior disc space narrowing L5-S1. 2. Lumbar spine is otherwise unremarkable and stable from comparison
[2023-11-08] MEDS: CYCLOBENZAPRINE 10MG STARTER 3 TAB BTL PO STA (12:14)
[2023-11-08] MEDS: ACET/COD 300 MG/30 MG STARTER PACK 6 TAB BTL PO STA (12:14)
[2023-11-08] MEDS: predniSONE 50 MG TAB PO STA (12:14)
[2023-11-08 12:27] VITALS: BP 120/76; PULSE 106; TEMP 98.1
== END 2023-11-08 12:19 | disposition home or self-care (01) ==
LOC: EC 11:18
DX: S39.012A Strain of muscle, fascia and tendon of lower back, initial encounter (principal); F17.290 Nicotine dependence, other tobacco product, uncomplicated; X50.0XXA Overexertion from strenuous movement or load, initial encounter
CPT/HCPCS: 99284; 96372 ×2; 72100; J2360; J1885; J7512

== ENCOUNTER 2024-11-29 07:49 | Emergency (ER) | payer OTHER ==
[2024-11-29 07:53] VITALS: RESP 16
--- NOTE | 2024-11-29 08:09 | ED ---
ENT HPI - General Chief complaint: Dental/Oral Stated complaint: oral pain Time Seen by Provider: 11/29/24 07:52 Source: patient, RN notes reviewed Mode of arrival: ambulatory Limitations: no limitations - History of Present Illness Initial comments: 49-year-old male presents emergency department with chief complaint of abdominal pain. Patient states that this started last couple days he states that he actually had issues a few months ago states that he was on antibiotics improved [place]. Patient has appointment next month with dentist. - Related Data Previous Rx's Medication Instructions Recorded Cyclobenzaprine [Flexeril] 10 mg PO TID PRN #15 tab 11/08/23 Ibuprofen [Motrin] 600 mg PO Q8HR PRN #20 tab 11/08/23 Lidocaine 5% Patch [Lidoderm 5% 1 patch TOPICAL DAILY #7 patch 11/08/23 Patch] predniSONE 50 mg PO DAILY #4 tab 11/08/23 Amoxic-Pot Clav 875-125Mg 1 tab PO BID 10 Days #20 tab 09/17/24 [Augmentin 875-125] Amoxic-Pot Clav 875-125Mg 1 tab PO Q12HR #20 tab 11/29/24 [Augmentin 875-125] Ibuprofen [Motrin] 600 mg PO Q8HR PRN #20 tab 11/29/24 Allergies Allergy/AdvReac Type Severity Reaction Status Date / Time No Known Allergies Allergy Verified 11/29/24 07:53 Review of Systems ROS Statement: Those systems with pertinent positive or pertinent negative responses have been documented in the HPI. ROS Other: All systems not noted in ROS Statement are negative. Past Medical History Past Medical History: No Reported History History of Any Multi-Drug Resistant Organisms: None Reported Past Surgical History: Appendectomy Past Psychological History: No Psychological Hx Reported Smoking Status: Never smoker, Vaper Past Alcohol Use History: Occasional Past Drug Use History: None Reported General Exam Limitations: no limitations General appearance: alert, in no apparent distress Head exam: Present: atraumatic, normocephalic, normal inspection Eye exam: Present: normal appearance, PERRL, EOMI. Absent: scleral icterus, conjunctival injection, periorbital swelling ENT exam: Present: mucous membranes moist. Absent: normal oropharynx (poor Dentition, dental carry, no drainable abscess) Neck exam: Present: normal inspection, full ROM. Absent: tenderness, meningismus, lymphadenopathy Respiratory exam: Present: normal lung sounds bilaterally. Absent: respiratory distress, wheezes, rales, rhonchi, stridor Cardiovascular Exam: Present: regular rate, normal rhythm, normal heart sounds. Absent: systolic murmur, diastolic murmur, rubs, gallop, clicks Course Vital Signs 11/29/24 07:51 Temperature 97.9 F Pulse Rate 120 H Respiratory 16 Rate Blood Pressure 150/115 O2 Sat by Pulse 98 Oximetry Medical Decision Making - Medical Decision Making Was pt. sent in by a medical professional or institution (ELIZABETH Tay, MANAGER OF FINANCIAL REPORTING, urgent care, hospital, or assisted...) When possible be specific @ -No Did you speak to anyone other than the patient for history (EMS, parent, family, police, friend...)? What history was obtained from this source @ -No Did you review nursing and triage notes (agree or disagree)? Why? @ -I reviewed and agree with nursing and triage notes Were old charts reviewed (outside hosp., previous admission, EMS record, old EKG, old radiological studies, urgent care reports/EKG's, assisted records)? Report findings @ -No old charts were reviewed Differential Diagnosis (chest pain, altered mental status, abdominal pain women, abdominal pain men, vaginal bleeding, weakness, fever, dyspnea, syncope, headache, dizziness, GI bleed, back pain, seizure, CVA, palpatations, mental health, musculoskeletal)? @ -Toothache, dental infection, dental abscess, dental caries EKG interpreted by me (3pts min.). @ -None X-rays interpreted by me (1pt min.). @ -None done CT interpreted by me (1pt min.). @ -None done U/S interpreted by me (1pt. min.). @ -None done What testing was considered but not performed or refused? (CT, X-rays, U/S, labs)? Why? @ -None What meds were considered but not given or refused? Why? @ -None Did you discuss the management of the patient with other professionals (professionals i.e. ELIZABETH Tay, MANAGER OF FINANCIAL REPORTING, lab, RT, psych nurse, social service assistant, office specialist, teacher, operational intelligence officer, employment case manager)? Give summary @ -No Was smoking cessation discussed for >3mins.? @ -No Was critical care preformed (if so, how long)? @ -No Were there social determinants of health that impacted care today? How? (Homelessness, low income, unemployed, alcoholism, drug addiction, transportation, low edu. Level, literacy, decrease access to med. care, half-way, rehab)? @ -No Was there de-escalation of care discussed even if they declined (Discuss DNR or withdrawal of care, Hospice)? DNR status @ -No What co-morbidities impacted this encounter? (DM, HTN, Smoking, COPD, CAD, Cancer, CVA, ARF, Chemo, Hep., AIDS, mental health diagnosis, sleep apnea, morbid obesity)? @ -None Was patient admitted / discharged? Hospital course, mention meds given and route, prescriptions, significant lab abnormalities, going to OR and other pertinent info. @ -Discharged patient has Dental infection, tooth ache placed on antibiotics, follow-up with dentist and analgesics provided. Undiagnosed new problem with uncertain prognosis? @ -No Drug Therapy requiring intensive monitoring for toxicity (Heparin, Nitro, Insulin, Cardizem)? @ -No Were any procedures done? @ -No Diagnosis/symptom? @ -Dental infection, tooth ache Acute, or Chronic, or Acute on Chronic? @ -Acute Uncomplicated (without systemic symptoms) or Complicated (systemic symptoms)? @ -uncomplicated Side effects of treatment? @ -No Exacerbation, Progression, or Severe Exacerbation? @ -No Poses a threat to life or bodily function? How? (Chest pain, [place], [place], pneumonia, PE, COPD, DKA, ARF, appy, cholecystitis, CVA, Diverticulitis, Homicidal, Suicidal, threat to staff... and all critical care pts) @ -No Disposition Clinical Impression: Toothache Disposition: HOME SELF-CARE Condition: Stable Instructions (If sedation given, give patient instructions): Toothache (ED) Additional Instructions: Please return to the Emergency Department if symptoms worsen or any other concerns. Prescriptions: Amoxic-Pot Clav 875-125Mg [Augmentin 875-125] 1 tab PO Q12HR #20 tab Ibuprofen [Motrin] 600 mg PO Q8HR PRN #20 tab PRN Reason: Pain Is patient prescribed a controlled substance at d/c from ED?: No Referrals: Daniel Grijalva MD [Primary Care Provider] - 1-2 days Time of Disposition: 08:09
[2024-11-29] MEDS: HYDROcodone/APAP 5-325MG 1 EACH TAB PO STA (08:26)
[2024-11-29] MEDS: ACET/COD 300 MG/30 MG STARTER PACK 6 TAB BTL PO STA (08:26)
[2024-11-29 08:34] VITALS: BP 145/89; PULSE 105; TEMP 97.8
== END 2024-11-29 08:40 | disposition home or self-care (01) ==
LOC: EC 07:49
DX: K08.89 Other specified disorders of teeth and supporting structures (principal); F17.290 Nicotine dependence, other tobacco product, uncomplicated
CPT/HCPCS: 99282

== ENCOUNTER 2024-12-26 07:51 | Emergency (ER) | payer OTHER ==
[2024-12-26 08:02] VITALS: TEMP 98
--- NOTE | 2024-12-26 08:28 | ED ---
General Adult HPI - General Chief complaint: Extremity Problem,Nontraumatic Stated complaint: L-foot pain Time Seen by Provider: 12/26/24 08:05 Source: patient Mode of arrival: ambulatory Limitations: no limitations - History of Present Illness Initial comments: Dictation was produced using [employer] dictation software. please excuse any grammatical, word or spelling errors. Chief Complaint: 49-year-old male with foot pain History of Present Illness: Patient 49-year-old male he works as an job requires a lot of heavy lifting. States that he felt fine all day yesterday. Woke up this morning with some foot pain. States its to his heel and lateral heel area. Denies any inciting event. Denies any fever chills night sweats. Patient states he can hurts when he bears weight. Patient reports history of left heel fracture after falling off a ladder years ago. The ROS documented in this emergency department record has been reviewed and confirmed by me. Those systems with pertinent positive or negative responses have been documented in the HPI. All other systems are other negative and/or noncontributory. - Related Data Previous Rx's Medication Instructions Recorded Cyclobenzaprine [Flexeril] 10 mg PO TID PRN #15 tab 11/08/23 Ibuprofen [Motrin] 600 mg PO Q8HR PRN #20 tab 11/08/23 Lidocaine 5% Patch [Lidoderm 5% 1 patch TOPICAL DAILY #7 patch 11/08/23 Patch] predniSONE 50 mg PO DAILY #4 tab 11/08/23 Amoxic-Pot Clav 875-125Mg 1 tab PO BID 10 Days #20 tab 09/17/24 [Augmentin 875-125] Amoxic-Pot Clav 875-125Mg 1 tab PO Q12HR #20 tab 11/29/24 [Augmentin 875-125] Ibuprofen [Motrin] 600 mg PO Q8HR PRN #20 tab 11/29/24 Allergies Allergy/AdvReac Type Severity Reaction Status Date / Time No Known Allergies Allergy Verified 12/26/24 08:01 Review of Systems ROS Statement: Those systems with pertinent positive or pertinent negative responses have been documented in the HPI. ROS Other: All systems not noted in ROS Statement are negative. Past Medical History Past Medical History: No Reported History History of Any Multi-Drug Resistant Organisms: None Reported Past Surgical History: Appendectomy Past Psychological History: No Psychological Hx Reported Smoking Status: Vaper Past Alcohol Use History: Occasional Past Drug Use History: None Reported General Exam - General Exam Comments Initial Comments: General: Well-appearing, nontoxic, no acute distress. Head: Normocephalic, atraumatic Eyes: PERRLA, EOMI ENT: Airway patent Chest: Nonlabored breathing Skin: No visual rash, normal skin tone Neuro: Alert and oriented 3 Musculoskeletal: No gross abnormalities Left foot: Atraumatic, palpatory tenderness to the left heel Limitations: no limitations Course Vital Signs 12/26/24 08:00 Temperature 98 F Pulse Rate 107 H Respiratory 18 Rate Blood Pressure 151/95 O2 Sat by Pulse 98 Oximetry Medical Decision Making - Medical Decision Making Was pt. sent in by a medical professional or institution (ELIZABETH Tay, AIRCRAFT ENGINE MECHANIC SUPERVISOR, urgent care, hospital, or correction...) When possible be specific @ -No Did you speak to anyone other than the patient for history (EMS, parent, family, police, friend...)? What history was obtained from this source @ -No Did you review nursing and triage notes (agree or disagree)? Why? @ -I reviewed and agree with nursing and triage notes Were old charts reviewed (outside hosp., previous admission, EMS record, old EKG, old radiological studies, urgent care reports/EKG's, correction records)? Report findings @ -No old charts were reviewed Differential Diagnosis (chest pain, altered mental status, abdominal pain women, abdominal pain men, vaginal bleeding, musculoskeletal, weakness, fever, dyspnea, syncope, headache, dizziness, GI bleed, back pain, seizure, CVA, palpatations, mental health)? @ -Fracture, healed fracture EKG interpreted by me (3pts min.). @ -None done X-rays interpreted by me (1pt min.). @ -Foot and ankle x-ray of the left lower extremity shows no acute processes CT interpreted by me (1pt min.). @ -None done U/S interpreted by me (1pt. min.). @ -None done What testing was considered but not performed or refused? (CT, X-rays, U/S, labs)? Why? @ -None What meds were considered but not given or refused? Why? @ -None Was smoking cessation discussed for >3mins.? @ -No Were there social determinants of health that impacted care today? How? (Homelessness, low income, unemployed, alcoholism, drug addiction, transportation, low edu. Level, literacy, decrease access to med. care, care home, rehab)? @ -No Was there de-escalation of care discussed even if they declined (Discuss DNR or withdrawal of care, Hospice)? DNR status @ -No What co-morbidities impacted this encounter? (DM, HTN, Smoking, COPD, CAD, Cancer, CVA, ARF, Chemo, Hep., AIDS, mental health diagnosis, sleep apnea, morbid obesity)? @ -None Was patient admitted / discharged? Hospital course, mention meds given and route, prescriptions, significant lab abnormalities, going to OR and other pertinent info. @ -49-year-old male with foot strain. Vital signs stable. Imaging studies negative. Patient discharged advised (care doctor Did you discuss the management of the patient with other professionals (pro fessionals i.e. , PA, AIRCRAFT ENGINE MECHANIC SUPERVISOR, lab, RT, psych nurse, marriage and family social worker, manager quality, teacher, operational intelligence officer, embedded case manager)? Give summary @ -No Was critical care preformed (if so, how long)? @ -No Undiagnosed new problem with uncertain prognosis? @ -No Drug Therapy requiring intensive monitoring for toxicity (Heparin, Nitro, Insulin, Cardizem)? @ -No Were any procedures done? @ -No Diagnosis/symptom? Acute, or Chronic, or Acute on Chronic? Uncomplicated (without systemic symptoms) or Complicated (systemic symptoms)? @ -Foot strain Side effects of treatment? @ -No Exacerbation, Progression, or Severe Exacerbation? @ -No Poses a threat to life or bodily function? How? (Chest pain, [place], [place], pneumonia, PE, COPD, DKA, ARF, appy, cholecystitis, CVA, Diverticulitis, Homicidal, Suicidal, threat to staff... and all critical care pts) @ -No Disposition Clinical Impression: Foot pain Disposition: HOME SELF-CARE Condition: Fair Instructions (If sedation given, give patient instructions): Foot Sprain (ED) Is patient prescribed a controlled substance at d/c from ED?: No Referrals: Daniel Grijalva MD [Primary Care Provider] - 1-2 days Time of Disposition: 08:28
--- NOTE | 2024-12-26 08:46 | XR ---
EXAMINATION TYPE: XR ankle complete 3 views LT, XR foot complete 3 views LT DATE OF EXAM: 12/26/2024 8:35 AM COMPARISON: None CLINICAL INDICATION: Male, 49 years old with history of ankle pain; PHH, pain FINDINGS: Ankle: Ankle mortise congruent with preservation of the distal tibia and fibula overlap. Talar dome is intac t. Small delineation to the Achilles tendon. Evidence of old calcaneal fracture with flattening of Bennett ehler's angle. Foot: Mild degenerative change first MTP joint with bunion formation. No acute fracture, subluxation, dislo cation is seen. IMPRESSION (ankle and foot): 1. Evidence of old fracture of the calcaneus with flattening of Boehler's angle. 2. 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 3. No acute osseous abnormality seen. [facility], Workstation: [facility], 12/26/2024 8:44 AM
[2024-12-26] MEDS: ACET/COD 300 MG/30 MG STARTER PACK 6 TAB BTL PO STA (08:54)
[2024-12-26 08:57] VITALS: BP 140/90; PULSE 96; RESP 20
== END 2024-12-26 08:57 | disposition home or self-care (01) ==
LOC: EC 07:51
DX: S96.912A Strain of unspecified muscle and tendon at ankle and foot level, left foot, initial encounter (principal); F17.290 Nicotine dependence, other tobacco product, uncomplicated; X50.0XXA Overexertion from strenuous movement or load, initial encounter; Y99.0 Civilian activity done for income or pay
CPT/HCPCS: 99283

== ENCOUNTER 2025-03-04 12:24 | Emergency (ER) | payer OTHER ==
[2025-03-04 12:34] VITALS: TEMP 97.5
--- NOTE | 2025-03-04 12:39 | ED ---
Lower Extremity Injury HPI - General Chief Complaint: Extremity Injury, Lower Stated Complaint: L ankle pain Time Seen by Provider: 03/04/25 12:36 Source: patient, RN notes reviewed Mode of arrival: ambulatory Limitations: no limitations - History of Present Illness Initial Comments: This is a 49-year-old male presenting for left ankle pain occurring last night. Patient denies recent trauma or known cause for pain, noting worsening pain with ambulation (8/10). Patient endorses history of left ankle fracture. Endorses use of Tylenol/Motrin with minimal relief. Denies LLE edema, erythema/discoloration, chest pain, dyspnea. MD Complaint: ankle injury Onset/Timin -: days(s) Injury: Ankle: Left Place: work Severity scale (1-10): 8 Improves With: immobilization, rest Worsens With: weight bearing, movement, palpation Treatments Prior to Arrival: NSAIDS - Related Data Previous Rx's Medication Instructions Recorded Cyclobenzaprine [Flexeril] 10 mg PO TID PRN #15 tab 11/08/23 Ibuprofen [Motrin] 600 mg PO Q8HR PRN #20 tab 11/08/23 Lidocaine 5% Patch [Lidoderm 5% 1 patch TOPICAL DAILY #7 patch 11/08/23 Patch] predniSONE 50 mg PO DAILY #4 tab 11/08/23 Amoxic-Pot Clav 875-125Mg 1 tab PO BID 10 Days #20 tab 09/17/24 [Augmentin 875-125] Amoxic-Pot Clav 875-125Mg 1 tab PO Q12HR #20 tab 11/29/24 [Augmentin 875-125] Ibuprofen [Motrin] 600 mg PO Q8HR PRN #20 tab 11/29/24 Ibuprofen [Motrin] 600 mg PO Q8HR PRN #30 tab 03/04/25 Allergies Allergy/AdvReac Type Severity Reaction Status Date / Time No Known Allergies Allergy Verified 03/04/25 12:33 Review of Systems ROS Statement: Those systems with pertinent positive or pertinent negative responses have been documented in the HPI. ROS Other: All systems not noted in ROS Statement are negative. Past Medical History Past Medical History: No Reported History History of Any Multi-Drug Resistant Organisms: None Reported Past Surgical History: Appendectomy Past Psychological History: No Psychological Hx Reported Smoking Status: Vaper Past Alcohol Use History: Occasional Past Drug Use History: None Reported General Exam Limitations: no limitations General appearance: alert, in no apparent distress Head exam: Present: atraumatic, normocephalic, normal inspection Eye exam: Present: normal appearance, PERRL, EOMI. Absent: scleral icterus, conjunctival injection, periorbital swelling ENT exam: Present: normal exam, mucous membranes moist Neck exam: Present: normal inspection. Absent: tenderness, meningismus, lymphadenopathy Respiratory exam: Present: normal lung sounds bilaterally. Absent: respiratory distress, wheezes, rales, rhonchi, stridor Cardiovascular Exam: Present: regular rate, normal rhythm, normal heart sounds. Absent: systolic murmur, diastolic murmur, rubs, gallop, clicks GI/Abdominal exam: Present: soft, normal bowel sounds. Absent: distended, tenderness, guarding, rebound, rigid Extremities exam: Present: full ROM, tenderness (Positive left navicular and anterior ankle TTP without obvious crepitus, ecchymosis, deformity.), normal capillary refill, other (Distal LLE neurovascular and motor function intact. Posterior tibialis pulse +2). Absent: pedal edema, joint swelling, calf tenderness Back exam: Present: normal inspection Neurological exam: Present: alert, oriented X3, CN II-XII intact Psychiatric exam: Present: normal affect, normal mood Skin exam: Present: warm, dry, intact, normal color. Absent: rash Course Vital Signs 03/04/25 03/04/25 12:31 13:56 Temperature 97.5 F L Pulse Rate 93 96 Respiratory 20 16 Rate Blood Pressure 144/89 145/98 O2 Sat by Pulse 99 98 Oximetry Medical Decision Making - Medical Decision Making Was pt. sent in by a medical professional or institution (, PA, CUFF CUTTER, urgent care, hospital, or jail...) When possible be specific @ -No Did you speak to anyone other than the patient for history (EMS, parent, family, police, friend...)? What history was obtained from this source @ -No Did you review nursing and triage notes (agree or disagree)? Why? @ -I reviewed and agree with nursing and triage notes Were old charts reviewed (outside hosp., previous admission, EMS record, old EKG, old radiological studies, urgent care reports/EKG's, jail records)? Report findings @ -No old charts were reviewed Differential Diagnosis (chest pain, altered mental status, abdominal pain women, abdominal pain men, vaginal bleeding, weakness, fever, dyspnea, syncope, headache, dizziness, GI bleed, back pain, seizure, CVA, palpatations, mental health, musculoskeletal)? @ -Differential Musculoskeletal Muscular strain, contusion, ligament sprain, fracture, arthritis, septic arthritis, bursitis, cellulitis, muscle spasm, nerve compression, DVT, arterial occlusion, herpes zoster, electrolyte abnormality, tumor.... This is not meant to be in all inclusive list EKG interpreted by me (3pts min.). @ -Not done X-rays interpreted by me (1pt min.). @ -Left foot x-ray shows no acute fracture or dislocation. CT interpreted by me (1pt min.). @ -None done U/S interpreted by me (1pt. min.). @ -None done What testing was considered but not performed or refused? (CT, X-rays, U/S, labs)? Why? @ -None What meds were considered but not given or refused? Why? @ -None Did you discuss the management of the patient with other professionals (professionals i.e. , PA, CU[employer] C[employer]TER, lab, RT, psych nurse, social services analyst, supervisor remelt, teacher, marine safety officer, case consultant)? Give summary @ -No Was smoking cessation discussed for >3mins.? @ -No Was critical care preformed (if so, how long)? @ -No Were there social determinants of health that impacted care today? How? (Homelessness, low income, unemployed, alcoholism, drug addiction, transportation, low edu. Level, literacy, decrease access to med. care, [facility], rehab)? @ -No Was there de-escalation of care discussed even if they declined (Discuss DNR or withdrawal of care, Hospice)? DNR status @ -No What co-morbidities impacted this encounter? (DM, HTN, Smoking, COPD, CAD, Cancer, CVA, ARF, Chemo, Hep., AIDS, mental health diagnosis, sleep apnea, morbid obesity)? @ -None Was patient admitted / discharged? Hospital course, mention meds given and route, prescriptions, significant lab abnormalities, going to OR and other pertinent info. @ -Based upon physical examination, with no lateral/medial malleolus tenderness and with navicular tenderness, left foot x-ray obtained. Left foot x-ray shows no acute fracture or dislocation. Patient provided IM Toradol and p.o. Tylenol for pain and discharged with T3 starter pack. Flaco wrap applied and work note also provided upon request. Motrin sent to patient's pharmacy. Advise follow- up with PCP/orthopedics regarding any ongoing foot/ankle pain. Discussed patient with Dr. Lin. Undiagnosed new problem with uncertain prognosis? @ -No Drug Therapy requiring intensive monitoring for toxicity (Heparin, Nitro, Insulin, Cardizem)? @ -No Were any procedures done? @ -No Diagnosis/symptom? @ -Foot sprain Acute, or Chronic, or Acute on Chronic? @ -Acute Uncomplicated (without systemic symptoms) or Complicated (systemic symptoms)? @ -Uncomplicated Side effects of treatment? @ -No Exacerbation, Progression, or Severe Exacerbation? @ -No Poses a threat to life or bodily function? How? (Chest pain, [place], [place], pneumonia, PE, COPD, DKA, ARF, appy, cholecystitis, CVA, Diverticulitis, Homicidal, Suicidal, threat to staff... and all critical care pts) @ -No Disposition Clinical Impression: Sprain of foot, left Disposition: HOME SELF-CARE Condition: Good Instructions (If sedation given, give patient instructions): Foot Sprain (ED) Additional Instructions: Apply cold compress for 10 minutes up to 4 times daily. Rest, compression, elevation as needed. Alternate Tylenol/Motrin every 4 hours for pain. Follow- up with PCP regarding any ongoing pain. Prescriptions: Ibuprofen [Motrin] 600 mg PO Q8HR PRN #30 tab PRN Reason: Pain Is patient prescribed a controlled substance at d/c from ED?: No Referrals: Daniel Grijalva MD [Primary Care Provider] - 1-2 days Time of Disposition: 13:08
[2025-03-04] MEDS: KETOROLAC 15 MG/ML 1 ML VIAL IM STA (12:51)
[2025-03-04] MEDS: ACETAMINOPHEN TAB 500 MG TAB PO STA (12:51)
--- NOTE | 2025-03-04 13:03 | XR ---
EXAMINATION TYPE: XR foot complete LT DATE OF EXAM: 03/04/2025 12:56 PM COMPARISON: None. CLINICAL INDICATION: Male, 49 years old with history of Atraumatic anterior ankle/navicular pain, TTP , pain TECHNIQUE: Frontal, lateral, and oblique images of the left foot are obtained. FINDINGS: There is no acute fracture/dislocation evident in the left foot. The joint spaces in the left foot appear within normal limits. The overlying soft tissue appears unremarkable. IMPRESSION: There is no acute fracture or dislocation in the left foot. [facility], , 03/04/2025 1:01 PM
[2025-03-04] MEDS: ACET/COD 300 MG/30 MG STARTER PACK TAB BTL PO STA (13:53)
[2025-03-04 13:57] VITALS: BP 145/98; PULSE 96; RESP 16
== END 2025-03-04 13:57 | disposition home or self-care (01) ==
LOC: EC 12:24
DX: S93.602A Unspecified sprain of left foot, initial encounter (principal); F17.290 Nicotine dependence, other tobacco product, uncomplicated; X58.XXXA Exposure to other specified factors, initial encounter
CPT/HCPCS: 73630; 99283; 96372; J1885